=== PATIENT | female | born 2000 | race Caucasian/White ===

== ENCOUNTER 2020-05-13 08:02 | Observation (INO) | payer OTHER, SELFPAY ==
[2020-05-13 08:10] VITALS: BMI 30.2
[2020-05-13 08:30] VITALS: BP 95/69; PULSE 86
[2020-05-13 08:44] LABS: Add Urine Microscopic? NO; Appearance Urine Clear (Clear); Bilirubin Urine Negative (Negative); Blood Urine Negative (Negative); Color Urine Yellow (Yellow); Glucose Urine UA Negative (Negative); Ketones Urine Negative (Negative); Leukocyte Esterase Ur Negative LEU/UL (NEGATIVE); Nitrate Urine Negative (Negative); Protein Urine Negative (Negative); Specific Grav Ur 1.019 (1.001-1.035); Urobilinogen Urine Negative mg/dL (<2.0)
[2020-05-13 08:45] VITALS: BP 98/61; PULSE 81
[2020-05-13 09:00] VITALS: BP 90/57; PULSE 85
[2020-05-13 09:15] VITALS: BP 105/60; PULSE 78
[2020-05-13 09:30] VITALS: BP 99/56; PULSE 72
--- NOTE | 2020-05-13 09:57 | OBADM ---
This patient, Cari Bar, admitted to the OB room OB Post 116 for observation. Patient/family oriented to hospital policies and general routines including ID bracelet, bed and alarms, visiting hours, pain management, procedures, bathroom and other care routines, personal items, smoking policy, room service/diet, and visiting hours. Patient/Family are encouraged to report perceived risks to care and to ask questions if they do not understand what they are told or what they should do.
--- NOTE | 2020-05-18 07:47 | PM.OBTRLD ---
OB - Triage/Final Diagnosis Evaluation Laboratory results: Laboratory Tests 05/13/20 08:33 Urine Color Yellow Urine Appearance Clear Urine pH 6.0 Ur Specific [place] 1.019 Urine Protein Negative Urine Glucose (UA) Negative Urine Ketones Negative Ur Blood (Man) Negative Urine Nitrate Negative Urine Bilirubin Negative Urine Urobilinogen Negative Ur Leukocyte Esterase Negative Final Diagnosis (1) Abdominal pain affecting : Code(s): O26.899 - Other specified related conditions, unspecified trimester; R10.9 - Unspecified abdominal pain Status: Acute
== END 2020-05-13 09:45 | disposition home or self-care (01) ==
PROVIDERS: Admitting Provider Obstetrics & Gynecology; Visit Provider Obstetrics & Gynecology
DX: O26.899 Other specified pregnancy related conditions, unspecified trimester (principal); R10.9 Unspecified abdominal pain
CPT/HCPCS: 81003; 87086; G0378; G0379

== ENCOUNTER 2020-07-12 10:18 | Outpatient (RCR) | payer BC, OTHER, SELFPAY ==
[2020-07-14] MEDS: RHO(D) IMMUNE GLOBULIN 300 MCG SYRINGE IM (17:02)
== END 2020-10-10 23:59 | disposition home or self-care (01) ==
LOC: ANHLAB 10:18
PROVIDERS: Visit Provider Obstetrics & Gynecology
DX: Z29.13 Encounter for prophylactic Rho(D) immune globulin (principal); O36.0130 Maternal care for anti-D [Rh] antibodies, third trimester, not applicable or unspecified; Z3A.00 Weeks of gestation of pregnancy not specified
CPT/HCPCS: 36415; 85461; 90384; 96372; J2790

== ENCOUNTER 2020-07-28 13:10 | Observation (INO) | payer BC, OTHER, SELFPAY ==
[2020-07-28 13:31] VITALS: BP 115/70; PULSE 92
[2020-07-28 13:46] VITALS: BP 115/74; PULSE 131
[2020-07-28 14:00] VITALS: TEMP 36.1
[2020-07-28 14:01] VITALS: BP 125/74; PULSE 97
[2020-07-28 14:11] LABS: Add Urine Microscopic? NO; Appearance Urine Clear (Clear); Bilirubin Urine Negative (Negative); Blood Urine Negative (Negative); Color Urine Yellow (Yellow); Glucose Urine UA Negative (Negative); Ketones Urine Negative (Negative); Leukocyte Esterase Ur Negative LEU/UL (NEGATIVE); Nitrate Urine Negative (Negative); Protein Urine Negative (Negative); Urobilinogen Urine Negative mg/dL (<2.0)
[2020-07-28 14:20] VITALS: BMI 30.8
--- NOTE | 2020-08-17 08:23 | P.PNOB_ITS ---
OB - Triage/Final Diagnosis Visit Information Comments/Additional reasons for admission: I have assessed the risk for this patient, Crai Bar, and determined that she would benefit from observation care. Evaluation Laboratory results: Laboratory Tests 07/28/20 14:01 Urine Color Yellow Urine Appearance Clear Urine pH 6.0 Ur Specific [place] 1.020 Urine Protein Negative Urine Glucose (UA) Negative Urine Ketones Negative Ur Blood (Man) Negative Urine Nitrate Negative Urine Bilirubin Negative Urine Urobilinogen Negative Ur Leukocyte Esterase Negative Final Diagnosis (1) False labor: Code(s): O47.9 - False labor, unspecified Status: Acute
== END 2020-07-28 15:25 | disposition home or self-care (01) ==
PROVIDERS: Admitting Provider Obstetrics & Gynecology; Visit Provider Obstetrics & Gynecology
DX: O47.03 False labor before 37 completed weeks of gestation, third trimester (principal); Z3A.31 31 weeks gestation of pregnancy
CPT/HCPCS: 81003; 87086; G0378; G0379

== ENCOUNTER 2020-08-22 07:14 | Observation (INO) | payer OTHER, SELFPAY ==
--- NOTE | 2020-08-22 07:14 | OBADM ---
This patient, Cari Bar, admitted to the OB room OB Post 115 for observation. Patient/family oriented to hospital policies and general routines including ID bracelet, bed and alarms, visiting hours, pain management, procedures, bathroom and other care routines, personal items, smoking policy, room service/diet, and visiting hours. Patient/Family are encouraged to report perceived risks to care and to ask questions if they do not understand what they are told or what they should do.
[2020-08-22 07:43] VITALS: BP 128/103; PULSE 126
[2020-08-22 07:53] VITALS: BMI 32.7
[2020-08-22 08:01] VITALS: BP 109/67; PULSE 93
[2020-08-22 08:21] LABS: Bilirubin Urine Negative (Negative); Color Urine Yellow (Yellow); Glucose Urine UA Negative (Negative); Ketones Urine Negative (Negative); Leukocyte Esterase Ur Negative LEU/UL (NEGATIVE); Nitrate Urine Negative (Negative); Protein Urine 1+ mg/dL (Negative); Specific Grav Ur >= 1.030 (1.001-1.035); Urobilinogen Urine 0.2 mg/dL (<2.0); pH Urine 6.5 (5.0-9.0)
[2020-08-22 08:26] LABS: Add Urine Microscopic? YES; Appearance Urine Sl Cloudy (Clear); Blood Urine Trace-Intact (Negative)
[2020-08-22 08:27] LABS: Bacteria Urine Trace /hpf; Squamous Epithelial Cell Urine Many /hpf (Few)
[2020-08-22 08:28] LABS: Mucus Urine Few /lpf
[2020-08-22] MEDS: LACTATED RINGERS 1,000 ML 999 ML IV CONT (08:28)
[2020-08-22] MEDS: ONDANSETRON INJ 4 MG/2 ML VIAL IV PUSH (08:29)
[2020-08-22] MEDS: LOPERAMIDE HCL 2 MG CAPSULE 4 MG PO (08:29)
--- NOTE | 2020-09-05 08:30 | PM.OBTRLD ---
OB - Triage/Final Diagnosis Visit Information Comments/Additional reasons for admission: I have assessed the risk for this patient, Cari Bar, and determined that she would benefit from observation care. Evaluation Laboratory results: Laboratory Tests 08/22/20 07:35 Urine Color Yellow Urine Appearance Sl cloudy Urine pH 6.5 Ur Specific [place] >= 1.030 Urine Protein 1+ H Urine Glucose (UA) Negative Urine Ketones Negative Ur Blood (Man) Trace-intact Urine Nitrate Negative Urine Bilirubin Negative Urine Urobilinogen 0.2 Ur Leukocyte Esterase Negative Urine RBC 3-5 H Urine WBC 4-6 H Ur Squamous Epith Cells Many H Urine Bacteria Trace Urine Mucus Few H Final Diagnosis (1) False labor: Code(s): O47.9 - False labor, unspecified Status: Acute
== END 2020-08-22 10:02 | disposition home or self-care (01) ==
PROVIDERS: Admitting Provider Obstetrics & Gynecology; Visit Provider Obstetrics & Gynecology
DX: O47.03 False labor before 37 completed weeks of gestation, third trimester (principal); Z3A.34 34 weeks gestation of pregnancy
CPT/HCPCS: 81001; 87086; A9270; G0378; G0379; J2405; J7120

== ENCOUNTER 2020-09-21 07:47 | Outpatient (CLI) | payer OTHER, SELFPAY ==
[2020-09-21 08:42] LABS: Basophils Percent Auto 0.3 % (0.2-1.2); Eosinophils Absolute Auto 0.1 K/mm3 (0-0.3); Eosinophils Percent Auto 1.5 % (0-4.4); Hematocrit 37.3 % (37.0-47.0); Immature Granulocyte Absolute 0.05 K/mm3 (0.00-0.031); Immature Granulocyte Percent A 0.7 % (0-0.5); Lymphocytes Absolute Auto 1.39 K/mm3 (0.9-3.2); Lymphocytes Percent Auto 18.7 % (18.3-44.2); Mean Corpuscular HGB Conc 34.9 g/dl (32-36); Mean Corpuscular Hemoglobin 32.6 pg (26-34); Mean Corpuscular Volume 93.5 fl (80-100); Mean Platelet Volume 10.5 fl (7.4-10.4); Monocytes Absolute Auto 0.6 K/mm3 (0.1-0.6); Monocytes Percent Auto 8.4 % (2.6-8.5); Neutrophils Absolute Auto 5.2 K/mm3 (1.3-6.7); Neutrophils Percent Auto 70.4 % (45.5-73.1); Platelet Count Result 202 k/mm3 (150-375); Red Blood Count 3.99 M/mm3 (4.2-5.4); Red Cell Distribution Width 13.3 % (11.5-14.5); White Blood Count 7.4 K/mm3 (4.5-10.0)
[2020-09-22 08:52] LABS: Rapid Plasma Reagin Non-Reactive (NonReactive)
== END 2020-09-21 07:48 | disposition home or self-care (01) ==
PROVIDERS: Visit Provider Obstetrics & Gynecology
DX: Z34.93 Encounter for supervision of normal pregnancy, unspecified, third trimester (principal); Z3A.00 Weeks of gestation of pregnancy not specified
CPT/HCPCS: 36415; 85025; 86592; 86850; 86900; 86901

== ENCOUNTER 2020-09-22 06:46 | Inpatient (IN) | payer OTHER, SELFPAY ==
--- NOTE | 2020-09-21 15:19 | PC.NURSE ---
VERIFIED WITH OR SCHEDULE AND PATIENT --C/S ON 09/22/20 AT 0900 PATIENT STATES SHE HAD HER BLOOD DRAWN FOR SURGERY TODAY
[2020-09-22] VITALS (62 sets, daily range): BP systolic 65–129; BP diastolic 27–100; PULSE 62–93; RESP 12–20; TEMP 36.1–36.8; O2SAT 97–100; BMI 33.3
[2020-09-22] MEDS: LACTATED RINGERS 1,000 ML 999 ML IV CONT ×2 (07:40→08:41)
--- NOTE | 2020-09-22 08:00 | LDADM ---
This patient, Cari Bar, was admitted to Labor/Delivery/Recovery 119 on 09/22/20 at 06:46. Plans for surgery/ and pain management and were discussed with patient. Patient/family oriented to hospital policies and general routines including ID bracelet, bed and alarms, visiting hours, pain management, procedures, bathroom and other care routines, personal items, smoking policy, room service/diet and guest tray routines, infant security routines, and visiting hours. Patient/Family are encouraged to report perceived risks to care and to ask questions if they do not understand what they are told or what they should do. See OBIX for further documentation.
--- NOTE | 2020-09-22 08:20 | WPDANESEPPF ---
Anes - Initial Pre Proc Eval Procedure: Operation Date: 09/22/20 09:00 Proposed Procedures p Primary Section - Trang Melo MD Date/Time: 09/22/20 08:20 Surgeon: Trang Melo MD Pre Op Diagnosis: sched c/s Patient Data Age: 20 Gender: F Height: 5 ft 5 in Weight: 91 kg Last Vital Signs Pulse 93 09/22/20 07:57 BP 129/84 09/22/20 07:57 Allergies Allergy/AdvReac Type Severity Reaction Status Date / Time shellfish derived Allergy Hives Verified 09/21/20 14:59 Home Medications Medication Instructions Recorded Confirmed Type ondansetron HCl [Zofran] 4 mg PO Q6H PRN #10 tablet 08/22/20 09/22/20 Rx aspirin [Low-Dose Aspirin] 81 mg PO DAILY 09/21/20 09/22/20 History fluoxetine [Prozac] 10 mg PO DAILY 09/21/20 09/22/20 History prenat.vits,pablo,dxi-qzqs-glwer 1 tablet PO DAILY 09/21/20 09/22/20 History [ #2] Patient hx anesthesia problems: none Family hx anesthesia problems: none PMFSH Past Medical History Medical History (Updated 09/22/20 @ 08:21 by Naga Faria MD) Depression Femoral artery transection Family History Family History Other Unknown family medical history Social History Social History Smoking status: Never smoker Spiritual care concerns: No Anes - Eval Final PreProcedure Day of Procedure 09/22/20 08:20 Patient weight: obese Heart: regular rate and rhythm Lungs: clear to auscultation Airway: Mallampati scale class II Neurological: alert and oriented Last oral intake: >/= 8 hours ASA classification: III Emergent: no Anesthetic plan: proceed Anesthesia type and monitoring: regional spinal and standard monitoring Informed Consent: The patient's anesthetic plan and its attendant risks and benefits were discussed with the patient/family/POA. Questions were solicited and answers provided to the satisfaction of the patient/family/POA.
--- NOTE | 2020-09-22 08:29 | PM.IMHP ---
H&P: HPI History of Present Illness Date/Time: 09/22/20 08:29 this patient is a 20-year-old 1 at 39 weeks gestation who presents for delivery. We have agreed to perform delivery for a history of femoral artery injury and repair. In the area of the groin the femoral artery was traumatized and then a repair was performed that required vascular surgery. The patient has no complaints. She denies any nausea, vomiting, fever, chills. She denies any chest pain or shortness of breath. She denies any contractions, loss of fluid, vaginal bleeding. She denies headache, blurry vision, epigastric pain. She denies any groin pain or medial thigh pain. Chief Complaint: Term Review of Systems Constitutional: Constitutional: Reports no additional constitutional complaints, Denies fatigue, Denies headache(s), Denies lethargy and Denies weakness Eyes: Eyes: Reports no additional eye complaints, Denies blurry vision and Denies photophobia ENT: Reports as per HPI, Denies headache(s) and Denies neck pain Cardiovascular: Cardiovascular: Denies chest pain, Denies diaphoresis, Denies leg edema, Denies palpitations and Denies dyspnea Respiratory: Respiratory: Denies hemoptysis, Denies dyspnea and Denies wheezing Gastrointestinal: Gastrointestinal: Denies abdominal pain, Denies melena, Denies bloating, Denies hematochezia, Denies nausea and Denies vomiting Genitourinary: Genitourinary: Reports no additional female genitourinary complaints Musculoskeletal: Musculoskeletal: Denies joint swelling, Denies neck pain, Denies numbness and Denies stiffness Neurologic: Denies Abnormal speech present, Denies confusion, Denies headache(s), Denies numbness and Denies weakness Psychiatric: Psychiatric: Denies anxiety, Denies confusion, Denies depression, Denies homicidal ideation and Denies suicidal ideation Endocrine: Endocrine: Denies fatigue and Denies palpitations Allergic/Immunologic: Allergic/Immunologic: Denies wheezing PMFSH Past Medical History Medical History (Updated 09/22/20 @ 08:31 by Trang Melo MD) Depression Femoral artery transection Family History Family History Other Unknown family medical history Social History Social History Smoking status: Never smoker Spiritual care concerns: No Meds Home Medications and Allergies Home Medications Medication Instructions Recorded Confirmed Type ondansetron HCl [Zofran] 4 mg PO Q6H PRN #10 tablet 08/22/20 09/22/20 Rx aspirin [Low-Dose Aspirin] 81 mg PO DAILY 09/21/20 09/22/20 History fluoxetine [Prozac] 10 mg PO DAILY 09/21/20 09/22/20 History prenat.vits,pablo,fbf-aaeu-issil 1 tablet PO DAILY 09/21/20 09/22/20 History [ #2] Allergies Allergy/AdvReac Type Severity Reaction Status Date / Time shellfish derived Allergy Hives Verified 09/21/20 14:59 Vital Signs Vital Signs - 24 hr 09/22/20 07:57 Pulse Rate 93 Blood Pressure 129/84 Exam Const: General: healthy appearing, comfortable and no acute distress; No confusion Orientation/consciousness: No confusion Eyes: Direct Ophthalmoscopy: No photophobia Resp: Auscultation: clear to auscultation bilaterally, no rales, no rhonchi and no wheezes Cardio: Rate: regular rate Heart sounds: no click, no murmurs and no rubs GI: Inspection: non-distended GI Palp: No abdominal tenderness Auscultation: normal bowel sounds Neuro: General: No confusion Speech: No Abnormal speech present Extrem: General: normal to inspection, no pedal edema and no calf tenderness Assessment and Plan Assessment and plan (1) Delivery by elective section: Code(s): O82 - Encounter for delivery without indication Status: Acute (2) Injury of femoral artery: Code(s): S75.009A - Unspecified injury of femoral artery, unspecified leg, initial encou
--- NOTE | 2020-09-22 08:32 | WPDHPUPDATE1 ---
History and Physical Update Update Date/Time: 09/22/20 08:32 History and Physical has been reviewed, including an updated exam of the patient. There are NO changes in the patient's condition. Risks, benefits, and alternatives have been discussed and questions answered. Patient agrees to proceed with procedure.
[2020-09-22] MEDS: ceFAZolin 2 GM/D5W 50 ML 2 GM/50 ML BAG IVPB (09:01)
--- NOTE | 2020-09-22 09:51 | P.OP_ITS ---
Procedure Note - Detailed Date of procedure: 09/22/20 Pre-op diagnosis: sched c/s femoral artery trauma Post-op diagnosis: same Procedure performed: low-transverse delivery Description of procedure: The patient was taken the operating room. She was prepped and draped in the dorsal supine position with leftward tilt after induction of spinal anesthetic. When anesthesia was found to be adequate a low-transverse skin incision was made and carried down to the level the fascia with the knife. The fascial incision was made at the midline with a scalpel. The fascial incision was extended laterally with Proctor scissors. The fascia was tented upward superior and inferior with Wilmer clamps. The rectus muscles were dissected off bluntly. The rectus muscles at the midline. The preperitoneal fat was dissected bluntly at the superior aspect of the separate the rectus muscles. The peritoneal cavity was entered bluntly in the same area. The peritoneal incision was extended superior and inferior with good visualization of bladder. Bladder blade was inserted. A low-transverse incision was made on the uterus with the scalpel. It was carried down the level of the amniotic cavity with a knife. The amniotic cavity bluntly. The uterine incision was made laterally with blunt traction. The was delivered. The cord was clamped and cut. The was handed off to waiting pediatric staff. Cord bloods were obtained. The placenta was removed manually. The uterus was exteriorized. Uterus cleared of all clots and debris. Uterus closed in 0 Vicryl in a running locked fashion. An imbricating layer of 0 Vicryl was also placed on the to bolster the closure. The uterus was returned to the abdomen. The gutters were cleared of all clots and debris. The fascia was closed 0 V icryl in a running fashion. Subcutaneous tissue was irrigated and bleeding areas were cauterized. The skin was closed with subcuticular absorbable byron. The incision was covered with derma hernandez. The patient tolerated the procedure well. She was taken recovery room stable condition. Sponge, lap, needle counts were correct x2. Anesthesia: spinal Surgeon: Trang Melo MD Estimated blood loss (mL): 300 Drains: No Packing: No Pathology: none sent Complications: No immediate complications Condition: stable Disposition: floor Findings: Normal maternal anatomy. Average size infant with normal Apgars.
[2020-09-22] MEDS: OXYTOCIN 30 UNITS/NS 500 ML 30 UNITS/500 ML BAG 125 UNITS IV CONT (11:00)
[2020-09-22 12:08] LABS: Amphetamine Screen Urine Negative (Negative); Barbiturate Screen Urine Negative (Negative); Benzodiazepines Screen Urine Negative (Negative); Cannabinoid Screen Urine Negative (Negative); Cocaine Screen Urine Negative (Negative); Methadone Screen Urine Negative (Negative); Opiate Screen Urine Negative (Negative); Phencyclidine Screen Urine Negative (Negative)
--- NOTE | 2020-09-22 12:37 | OBPPTRN ---
Patient transferred to post room # 282 via bed. Support person present. Oriented to unit, room, information board, rooming in, admission packet and security measures. Patient verbalizes understanding.
[2020-09-22] MEDS: KETOROLAC 30 MG/ML VIAL (*BKC) IV PUSH (12:56)
--- NOTE | 2020-09-22 13:25 | PC.NURSE ---
Mother called out for assist with feeding. Consulted with patient, mother reports fed well first feeding. Reviewed nipple care of lanolin after feedings. Mother is independently attempting infant in cradle. Reviewed feeding cues, frequencies, duration of feedings, feeding elimination flow sheet, and signs of adequate intake. Demonstrated stimulation techniques to wake for feeding. Assisted with infant to breast. Reviewed positioning/alignment in cross cradle, holding breast in U hold and guided asymmetrical latch on. Mother switched to cradle, was able to maintain deep latch. Infant was able to latch within a few attempts. Infant nursed eagerly, with steady draws and frequent swallowing noted. Reviewed signs of a correct latch, effective nursing and suck swallow ratio. was able to maintain latch. Demonstrated how to adjust latch more deeply while feeding. Mother quickly reports she can feel is latched more deeply and has minimal tenderness. Instructed mother to call out for RN assistance if she is unable to latch infant for feeding or she has discomfort with nursing. Instructed feeding should be initiated three hours from start of last feeding or if feeding cues are noted before. Mother voiced understanding of information shared.
[2020-09-22] MEDS: HYDROcodone/acetaminophen (*CRX) 5-325 MG TABLET 1 TAB PO (15:07)
[2020-09-22] MEDS: DOCUSATE SODIUM 100 MG CAPSULE PO (15:07)
[2020-09-22] MEDS: DEXTROSE 5%/0.45% SOD CHL 1,000 ML 125 ML IV CONT (15:07)
[2020-09-22] MEDS: LORATADINE 10 MG TABLET PO (17:12)
[2020-09-22] MEDS: IBUPROFEN 600 MG TABLET PO (20:03)
[2020-09-22] MEDS: HYDROcodone/acetaminophen (*CRX) 10-325 MG TABLET 1 TAB PO (20:03)
[2020-09-23 00:10] VITALS: BP 122/60; PULSE 81; RESP 16; TEMP 37.2
[2020-09-23] MEDS: HYDROcodone/acetaminophen (*CRX) 10-325 MG TABLET 1 TAB PO (05:06)
[2020-09-23] MEDS: IBUPROFEN 600 MG TABLET PO ×3 (05:06→21:38)
[2020-09-23 05:15] VITALS: BP 101/70; PULSE 96; RESP 14; TEMP 36.8
[2020-09-23 05:54] LABS: Basophils Percent Auto 0.2 % (0.2-1.2); Eosinophils Absolute Auto 0.1 K/mm3 (0-0.3); Eosinophils Percent Auto 1.2 % (0-4.4); Hematocrit 31.9 % (37.0-47.0); Immature Granulocyte Absolute 0.04 K/mm3 (0.00-0.031); Immature Granulocyte Percent A 0.5 % (0-0.5); Lymphocytes Percent Auto 15.7 % (18.3-44.2); Mean Corpuscular HGB Conc 34.5 g/dl (32-36); Mean Corpuscular Hemoglobin 32.8 pg (26-34); Mean Corpuscular Volume 95.2 fl (80-100); Mean Platelet Volume 10.8 fl (7.4-10.4); Monocytes Absolute Auto 0.6 K/mm3 (0.1-0.6); Monocytes Percent Auto 7.7 % (2.6-8.5); Neutrophils Absolute Auto 6.2 K/mm3 (1.3-6.7); Neutrophils Percent Auto 74.7 % (45.5-73.1); Platelet Count Result 152 k/mm3 (150-375); Red Blood Count 3.35 M/mm3 (4.2-5.4); Red Cell Distribution Width 13.3 % (11.5-14.5); White Blood Count 8.3 K/mm3 (4.5-10.0)
--- NOTE | 2020-09-23 07:45 | P.PNOB_ITS ---
OB - PN: Subj Subjective Date/time seen: 09/23/20 07:45 Patient comments: no complaints baby status: doing well OB - PN: Obj Data Labs CBC & Chem 7: 09/23/20 05:16 Labs: Laboratory Results - last 24 hr 09/22/20 09/23/20 09/23/20 11:42 05:16 05:16 WBC 8.3 RBC 3.35 L Hgb 11.0 L Hct 31.9 L MCV 95.2 MCH 32.8 MCHC 34.5 RDW 13.3 Plt Count 152 MPV 10.8 H Immature Gran % (Auto) 0.5 Neut % (Auto) 74.7 H Lymph % (Auto) 15.7 L [place] % (Auto) 7.7 Eos % (Auto) 1.2 Baso % (Auto) 0.2 Lymph # (Auto) 1.30 [place] # (Auto) 0.6 Eos # (Auto) 0.1 Baso # (Auto) 0.0 Abs Immat Gran (auto) 0.04 H Absolute Neuts (auto) 6.2 Absolute Nucleated RBC 0.0 Nucleated RBC % 0.0 Urine Opiates Screen Negative Urine Methadone Screen Negative Ur Barbiturates Screen Negative Ur Phencyclidine Scrn Negative Ur Amphetamine Screen Negative U Benzodiazepines Scrn Negative Urine Cocaine Screen Negative U Cannabinoids Screen Negative Blood Type A Negative Antibody Screen Negative Screen Negative Baby's Blood Type A pos Baby's RADHA Negative Doses of RhIg Required 1 OB - PN A/P Plan day: 1 Plan: routine care Time Spent With Patient Time: Total time spent is greater than 50% in coordination of care (as documented) at patient's floor/unit and/or counseling patient: Review of Systems Review of Systems: All systems reviewed & are unremarkable except as noted in HPI and below Exam Const: General: cooperative Nutritional Appearance: average body habitus Orientation/consciousness: patient oriented x3 Resp: Effort & Inspection: normal respiratory effort GI: Inspection: other (incision CDI)
[2020-09-23 08:15] VITALS: BP 110/74; PULSE 92; RESP 16; TEMP 37.4; O2SAT 100
[2020-09-23] MEDS: FLUoxetine HCL 10 MG CAPSULE PO (09:29)
[2020-09-23] MEDS: MULTIVIT/MIN/PREN/FOL AC/IRON TABLET 1 TAB PO (09:29)
[2020-09-23] MEDS: DOCUSATE SODIUM 100 MG CAPSULE PO ×2 (09:29→16:46)
--- NOTE | 2020-09-23 09:30 | PC.NURSE ---
Mother called out for assist with feeding. Consulted with patient, mother reports has fed well during the night, she has developed nipple discomfort with latch and during the feeding. Reviewed nipple care of lanolin, warm compresses several times per day as needed. Mother nipples are slightly reddened and dry. Mother reports more pain to right than left,. right nipple is slightly flat. Reviewed infant feeding cues, frequencies, duration of feedings, feeding elimination flow sheet, and signs of adequate intake. Demonstrated stimulation techniques to wake for feeding. Assisted with to breast. Reviewed positioning/alignment in cross cradle, holding breast in U hold and guided asymmetrical latch on. was able to latch within a few attempts. nursed eagerly, with steady draws and frequent swallowing noted. Reviewed signs of a correct latch, effective nursing and suck swallow ratio. was able to maintain latch. Mother reported tenderness at times, had slipped to shallow latch. Demonstrated how to adjust latch more deeply while feeding. Mother quickly reports she can feel is latched more deeply and has minimal tenderness. Suggested to stimulate while feeding to keep infant awake and nursing effectively for increased stimulation and increased intake. Instructed mother to call out for RN assistance if she is unable to latch infant for feeding or she has discomfort with nursing.
[2020-09-23] MEDS: RHO(D) IMMUNE GLOBULIN 300 MCG/2 ML SYRINGE IM (11:05)
--- NOTE | 2020-09-23 13:02 | WPDANLDNPN2 ---
Anes-Prog Note L&D-Neuraxial Date/Time: 09/23/20 13:02 Neuraxial medications: intrathecal PF morphine Opiod-related complaints: none Patient feedback: Patient satisfied with post-operative pain management.
--- NOTE | 2020-09-23 13:02 | WPDANLDPN2 ---
Anes-Prog Note L&D Date/Time: 09/23/20 13:02 Comfortable throughout: section Neuraxial method: spinal Epidural/Spinal procedure site: clean & non-tender Neuro status: Neuro function grossly intact. Cardiovascular status: normal Respiratory status: normal Airway patency: baseline Mental status: baseline Post-Op hydration status: normal Vital Signs: Last Vital Signs Temp 37.4 C 09/23/20 08:15 Pulse 92 09/23/20 08:15 Resp 16 09/23/20 08:15 BP 110/74 09/23/20 08:15 Pulse Ox 100 09/23/20 08:15 Pain score (VAS): 0 I/O: Intake & Output 09/22/20 09/23/20 09/23/20 23:59 07:59 15:59 Intake Total 500 2000 Output Total 720 2500 Balance -220 -500 Post-procedural complaints: none Patient feedback: Patient satisfied with anesthetic care.
[2020-09-23] MEDS: HYDROcodone/acetaminophen (*CRX) 5-325 MG TABLET 1 TAB PO ×3 (13:14→21:40)
--- NOTE | 2020-09-23 13:35 | PC.NURSE ---
Mother called out for assist with feeding. Mother is attempting to right breast with flat nipple. Demonstrated how to roll and stimulate to draw out nipple. Nipple rolls out easily and will quickly flatten back. Discussed and offered Latch Assist and Nipple Shield. Mother is willing to attempt latch with both. Demonstrated use of latch assist, would draw out nicely then quickly flatten, was unable to obtain a deep latch. Instructions given on application and cleaning of shield. Discussed nipple shield precautions and possible complications. Patient able to return demonstration on proper application of shield. Discussed the need to initiate pumping if infant continues to nurse with the shield. Patient verbalizes understanding. was able to latch deeply with shield, infant pulled back with gagging and was unable to maintain latch using nipple shield. Mother stimulated right nipple, several attempts made, was able to latch to right breast without shield. Reviewed positioning/alignment in cross cradle, holding breast in U hold and guided asymmetrical latch on. Once latched infant nursed eagerly, with steady draws and frequent swallowing noted. Reviewed signs of a correct latch, effective nursing and suck swallow ratio. Infant was able to maintain latch. Demonstrated how to adjust latch more deeply while feeding. Mother reports she can feel is latched more deeply and has minimal tenderness. Suggested to stimulate while feeding to keep awake and nursing effectively for increased stimulation and increased intake. FOB at bedside stimulating to assist keeping infant awake. Instructed mother to call out for RN assistance if she is unable to latch for feeding or she has discomfort with nursing. Discussed it is normal for several attempts before a deep latch is obtained, should become more organized within a few days assisting with quick latch. Discussed mother's milk coming in and may make right breast firm and flatten out nipple. Advise warm compresses, self expression or pumping to soften before attempting to breast. Discussed signs of adequate intake, for weight, output, jaundice and feeding frequencies. Mother states she feels confident to continue effective at home. Reviewed transition to breast milk, signs of adequate intake, and engorgement/relief. Instructed to call ICP if intake/output less than required. Reviewed regular medications mother is taking. Information provided per Roselyn. Reviewed community resources on the [employer] website and in the Mom/Baby guide. Information on outpatient services provided. Mother has no further questions at this time.
[2020-09-23 20:18] VITALS: BP 124/81; PULSE 98; RESP 15; TEMP 36.9
[2020-09-24] MEDS: HYDROcodone/acetaminophen (*CRX) 5-325 MG TABLET 1 TAB PO ×2 (01:51→07:55)
[2020-09-24] MEDS: FLUoxetine HCL 10 MG CAPSULE PO (07:55)
[2020-09-24] MEDS: DOCUSATE SODIUM 100 MG CAPSULE PO (07:55)
[2020-09-24] MEDS: IBUPROFEN 600 MG TABLET PO (07:55)
[2020-09-24] MEDS: MULTIVIT/MIN/PREN/FOL AC/IRON TABLET 1 TAB PO (07:56)
[2020-09-24 09:00] VITALS: BP 109/73; PULSE 91; RESP 16; TEMP 36.8; O2SAT 98
--- NOTE | 2020-09-24 09:58 | P.PNOB_ITS ---
OB - PN: Subj Subjective Date/time seen: 09/24/20 09:58 Patient comments: no complaints baby status: doing well OB - PN: Obj Data Labs CBC & Chem 7: 09/23/20 05:16 Labs: Laboratory Results - last 24 hr 09/23/20 05:16 Blood Type A Negative Antibody Screen Negative Screen Negative Baby's Blood Type A pos Baby's RADHA Negative Doses of RhIg Required 1 OB - PN A/P Time Spent With Patient Time: Total time spent is greater than 50% in coordination of care (as docu mented) at patient's floor/unit and/or counseling patient: Exam Const: General: cooperative Orientation/consciousness: patient oriented x3 Resp: Effort & Inspection: normal respiratory effort GI: Inspection: other (Incision CDI) Psych: Insight: Good insight present (Psych) Judgement: Good judgement present (Psych)
--- NOTE | 2020-09-24 10:01 | P.DS_ITS ---
DS: Admitting Diagnosis Admitting Diagnosis Admitting Diagnosis: primary section OB - DS: Summary OB Procedures : None OB Procedures Intrapartum: OB Procedures: : None Peripartum Data Procedures: Procedures Operation Date: 09/22/20 09:00 Actual Procedures Side Surgeon p Primary Section Not Applicable Trang Melo MD Time Spent with Patient Time attestation: Total time spent providing and/or coordinating discharge services: DS: Data Data Completed and Pending Labs on day of discharge: Labs from last 24 hours 09/23/20 05:16 Blood Type A Negative Antibody Screen Negative Screen Negative Baby's Blood Type A pos Baby's RADHA Negative Doses of RhIg Required 1 Discharge Plan Discharge Attending physician on discharge: Trang Melo Discharging Clinician: Marisol Barros Patient Disposition: Home, Self-Care Activity: pelvic rest Diet: regular Patient Instructions: Antibiotic Form Stand Alone Forms: General Discharge Information Follow-up/Referrals: Trang Melo MD [Physician] - 1 Week Discharge Medications: New hydrocodone-acetaminophen 5-325 mg Tablet 1 tablet PO Q3H PRN (Reason: Moderate Pain (4-6)) Qty: 20 RF: 0 Continued fluoxetine [Prozac] 10 mg Capsule 10 mg PO DAILY RF: 0 #2 Tablet 1 tablet PO DAILY RF: 0 Discontinued Low-Dose Aspirin 81 mg Tablet 81 mg PO DAILY RF: 0 ondansetron HCl [Zofran] 4 mg Tablet 4 mg PO Q6H PRN (Reason: Nausea) Qty: 10 RF: 0 Date of admission: 09/22/20 06:46 Primary Care Provider: PHYSICIAN,DIAL PRINTER Admitting Provider: Trang Melo Attending physician on admission: Trang Melo Condition: Stable
--- NOTE | 2020-09-24 10:02 | P.DS_ITS ---
DS: Admitting Diagnosis Admitting Diagnosis Admitting Diagnosis: primary OB - DS: Summary OB Procedures : None OB Procedures Intrapartum: OB Procedures: : None Peripartum Data Procedures: Procedures Operation Date: 09/22/20 09:00 Actual Procedures Side Surgeon p Primary Section Not Applicable Trang Melo MD Time Spent with Patient Time attestation: Total time spent providing and/or coordinating discharge services: DS: Data Data Completed and Pending Labs on day of discharge: Labs from last 24 hours 09/23/20 05:16 Blood Type A Negative Antibody Screen Negative Screen Negative Baby's Blood Type A pos Baby's RADHA Negative Doses of RhIg Required 1 Discharge Plan Discharge Attending physician on discharge: Trang Melo Discharging Clinician: Marisol Barros Patient Disposition: Home, Self-Care Activity: pelvic rest Diet: regular Patient Instructions: Antibiotic Form Stand Alone Forms: General Discharge Information Follow-up/Referrals: Trang Melo MD [Physician] - 1 Week Discharge Medications: New hydrocodone-acetaminophen 5-325 mg Tablet 1 tablet PO Q3H PRN (Reason: Moderate Pain (4-6)) Qty: 20 RF: 0 Continued fluoxetine [Prozac] 10 mg Capsule 10 mg PO DAILY RF: 0 #2 Tablet 1 tablet PO DAILY RF: 0 Discontinued Low-Dose Aspirin 81 mg Tablet 81 mg PO DAILY RF: 0 ondansetron HCl [Zofran] 4 mg Tablet 4 mg PO Q6H PRN (Reason: Nausea) Qty: 10 RF: 0 Date of admission: 09/22/20 06:46 Primary Care Provider: PHYSICIAN,[employer]ER Admitting Provider: Trang Melo Attending physician on admission: Trang Melo Condition: Stable
--- NOTE | 2020-09-24 12:16 | PC.NURSE ---
Discharged patient with infant to awaiting car. All discharge instructions given and questions answered.
[2020-09-27 10:40] VITALS: BP 127/87; PULSE 95; RESP 20; TEMP 36.8; O2SAT 100
== END 2020-09-24 11:33 | disposition home or self-care (01) | DRG 540 ==
LOC: ANHLDR 06:52 → ANHOB2 12:44
PROVIDERS: Admitting Provider Obstetrics & Gynecology; Visit Provider Obstetrics & Gynecology
PROC: 10D00Z1 Extraction of Products of Conception, Low, Open Approach (ICD-10-PCS; CPT 59514; principal; 2020-09-22 09:00)
DX: O99.892 Other specified diseases and conditions complicating childbirth (principal); Z37.0 Single live birth; Z3A.39 39 weeks gestation of pregnancy; Z98.890 Other specified postprocedural states; O99.214 Obesity complicating childbirth; E66.9 Obesity, unspecified; O99.344 Other mental disorders complicating childbirth; F32.9 Major depressive disorder, single episode, unspecified
CPT/HCPCS: 36415; 80307; 85025; 85461; 90384; A9270; J0131; J0690; J1885; J2274; J2370; J2405; J2590; J2790; J7120